=== PATIENT | female | born 1995 | race Caucasian/White ===

== ENCOUNTER 2023-06-27 15:35 | Emergency (ER) | payer SELFPAY ==
[2023-06-27 15:53] VITALS: BP 146/92; PULSE 101; O2SAT 96
== END 2023-06-27 17:26 | disposition left against medical advice (07) ==
PROVIDERS: Emergency Provider Emergency Medicine; PCP Registered Nurse
DX: Z04.1 Encounter for examination and observation following transport accident (principal); R10.30 Lower abdominal pain, unspecified; Z53.21 Procedure and treatment not carried out due to patient leaving prior to being seen by health care provider